=== PATIENT | female | born 1990 | race African-American/Black ===

== ENCOUNTER 2016-10-28 22:17 | Emergency (ER) | payer BC ==
--- NOTE | 2016-10-29 01:11 | ER ---
ADMIT: 10/28/2016 RM/LOC: ER [facility] MR#: [id number] [facility] [address] [place], [place] [id number] ANNE-MARIE NOVA I [address] [address] Emergency Room Report SEX: F AGE: 26 : 1990 DATE: 10/28/2016 The patient is a 26-year-old [place], complaining of right shoulder pain when she awoke from her nap. States she has had previous dislocation in 2007, though no records are available. Exam remarkable for nontoxic, afebrile, acutely uncomfortable female holding her arm in abduction, internal rotation. Step-off deformity noted. X-ray confirms anterior dislocation. Post- reduction film intact without Bankart or Hill-Sachs deformity. Given sling, naproxen 500 mg b.i.d. #60, hydrocodone 5/325 mg #20, PT evaluation and treat three times a week x2 weeks, follow up with Dr. Hernandez, work release until released by Dr. Hernandez. Procedure: The patient premedicated with Toradol 30 mg, Dilaudid 1 mg, Reglan 5 mg IM, Xylocaine 2% 15 mL injected intra-articular right shoulder with complete anesthesia. Shoulder easily reduced with scapular manipulation and adduction, traction of the humerus. The patient placed in sling and tolerated procedure well. Nadir Cervantes MD/ anna JOB #: [id number] CC: Nadir Cervantes MD, Attending Physician Raz Hernandez MD, Family Physician Raz Hernandez MD
== END 2016-10-28 23:15 | disposition home or self-care (01) ==
LOC: ER 22:17
PROC: 0RSJXZZ Reposition Right Shoulder Joint, External Approach (ICD-10-PCS; principal; 2016-10-28)
DX: S43.014A Anterior dislocation of right humerus, initial encounter (principal); X58.XXXA Exposure to other specified factors, initial encounter